=== PATIENT | female | born 1930 | race Caucasian/White ===

== ENCOUNTER 2017-02-19 12:48 | Emergency (ER) | payer OTHER ==
[2017-02-19 13:06] VITALS: TEMP 97.9
--- NOTE | 2017-02-19 15:25 | EDPHY ---
H & P Stated Complaint: mouth infection HPI/ROS: Chief complaint: Mouth infection History of present illness: This is an 86-year-old female brought to the emergency department by her daughter for evaluation of a mouth infection. Patient and daughter report patient has had dentures for the last few months. They have been poorly fitting. They have been causing irritation of the mouth. This morning they noted the left side of her cheek started to swell up. They are concerned she is developing an infection. They did apply ice and the swelling has decreased. She still has mild discomfort. No report of fevers or chills, no report of difficulty opening or closing the mouth, no report of difficulty talking, swallowing or breathing. - Personal History Tetanus Vaccine Date: < 10 years - Medical/Surgical History Hx Asthma: No Hx Chronic Respiratory Disease: Yes Hx Diabetes: Yes Hx Cardiac Disease: No Hx Renal Disease: No Hx Cirrhosis: No Hx Alcoholism: No Hx HIV/AIDS: No Hx Splenectomy or Spleen Trauma: No Other PMH: COPD, histoplasmosis, osteoporosis, breast cancer--RT breast lumpectomy 1989, diverticulitis, GERD, edema in b/l ankles, CHF, spinal surgery x3, chronic back pain (trevin TORRES), hysterectomy, bilateral cataract surgery, macular degeneration. - Social History Smoking Status: Former smoker - Physical Exam Exam: General: Alert, nontoxic Eyes: PERRLA ENT: Tympanic membranes, external auditory canals, external ears and surrounding soft tissue including over the mastoids are unremarkable. Nasopharynx is not injected. There is no rhinorrhea. Oropharynx is not injected. There is no edema. There is no exudate. There is no asymmetry. The uvula is midline. No elevation of the tongue. There is no hoarseness, no drooling, no trismus, no stridor. Mouth: There is irritation along the left buccal mucosa. Musculoskeletal: The face is nontender to palpation. Skin: No erythema or edema of the face. There is tenderness however over the left cheek region around the mandible. Neurologic: Alert and oriented. Strength and sensation intact and symmetrical. Constitutional: Initial Vital Signs Temperature (C) 36.6 C 02/19/17 13:01 Heart Rate 79 02/19/17 13:01 Respiratory Rate 18 02/19/17 13:01 Blood Pressure 147/86 H 02/19/17 13:01 O2 Sat (%) 91 L 05/15/17 13:01 O2 Delivery Mode Room Air O2 (L/minute) 2.5 Allergies/Adverse Reactions: Influenza TV-S 05-16 Vaccine [From Fluarix 2008-06 (PF)] Allergy (Verified 09/19 13:00) levofloxacin [From Levaquin] Allergy (Verified 09/19/16 13:00) lisinopril [Lisinopril] Allergy (Verified 09/19/16 13:00) flu shot Allergy (Uncoded 09/19/16 13:00) Home Medications: Medication Instructions Recorded Calcitonin,[place],Synthetic 1 spray EACHNARE DAILY 03/30/16 [Miacalcin] Cyanocobalamin [Vitamin B12 (*)] 1,000 mcg PO DAILY@03/30/16 DULoxetine [Cymbalta 60 MG (*)] 60 mg PO BID 03/30/16 Diclofenac Sodium [Voltaren Gel 1 polo TP QID 03/30/16 (*)] Ergocalciferol [Vitamin D2 (*)] 50,000 unit PO SA@08 03/30/16 Furosemide [Lasix 20 MG (*)] 20 mg PO Q2D 03/30/16 Magnesium Hydroxide [Milk of 30 ml PO BID PRN 03/30/16 Magnesia (*)] Metoprolol Succinate Xr [Toprol Xl 75 mg PO DAILY 03/30/16 50 mg (*)] Omeprazole [Prilosec 20 mg] 20 mg PO DAILY@0730 03/30/16 Pregabalin [Lyrica 75mg (*)] 75 mg PO BID 03/30/16 Sennosides/Docusate Sodium 2 each PO DAILY PRN 03/30/16 [Senokot-S] Teriparatide [Forteo] 0.8 ml SQ DAILY 03/30/16 Acetaminophen [Tylenol ES 500 mg 1,000 mg PO TID #0 tab 06/22/16 (*)] Ibuprofen [Motrin (*)] 400 mg PO Q6HRS PRN #0 tab 06/22/16 Patch Removal 1 ea TD DAILY21 PRN #0 patch 06/22/16 oxyCODONE IR [Oxycodone Ir (*)] 5 mg PO Q4 PRN #0 tab 06/22/16 Melatonin [Melatonin 3 MG (*)] 3 mg PO HS 09/01/16 Psyllium Husk (with Sugar) 1 each PO DAILY 09/01/16 [Metamucil Packet] QUEtiapine FUMARATE [Seroquel 25 25 mg PO HS 09/01/16 mg (*)] Acetaminophen [Tylenol ES 500 mg 1,000 mg PO Q8 #0 tab 09/02/16 (*)] Lidocaine 5% [Lidoderm 5% Patch 1 ea TD DAILY #30 patch 09/02/16 (*)] Atrovent 0.03% Nasal (*) 09/19/16 Amoxicillin 500 mg PO TID 7 Days 02/19/17 Medical Decision Making ED Course/Re-evaluation: Patient is seen under the supervision of my secondary supervising physician Dr. Jessica Nunez. Patient presents to the emergency department for evaluation of discomfort along her left cheek from dentures now with swelling to the face that has improved. She is nontoxic. Vital signs are stable. Physical exam reveals some irritation along the mucosal surface of the cheek and some tenderness to the cheek without obvious edema, induration or fluctuance or evidence of severe infection. I do believe it prudent to start her on antibiotics for potential infection. She is asked to follow up with an oral surgeon or dentist for continued evaluation and care. Strict return precautions are given. The family voiced understanding and agreement with plan. Differential Diagnosis: Included but not limited to odontogenic infection, salivary gland dysfunction, skin infection Departure - Departure Disposition: Home, Routine, Self-Care Clinical Impression: Infection of mouth Condition: Good Instructions: Dental Abscess (ED) Additional Instructions: Follow-up with a dentist or oral surgeon for recheck this week If symptoms worsen or new symptoms develop return to the emergency room for recheck Referrals: Elvin Guadarrama MD [Primary Care Provider] - As per Instructions Hugo Serrano MD [Medical Doctor] - As per Instructions Prescriptions: Amoxicillin 500 mg PO TID 7 Days
[2017-02-19 15:39] VITALS: BP 156/92; PULSE 74; RESP 16; O2SAT 97
== END 2017-02-19 15:38 | disposition home or self-care (01) ==
DX: B37.0 Candidal stomatitis (principal); E11.9 Type 2 diabetes mellitus without complications; J44.9 Chronic obstructive pulmonary disease, unspecified; I50.9 Heart failure, unspecified; Z85.3 Personal history of malignant neoplasm of breast; Z87.891 Personal history of nicotine dependence

== ENCOUNTER 2017-03-12 13:16 | Emergency (ER) | payer OTHER ==
[2017-03-12 13:46] VITALS: TEMP 96.8
--- NOTE | 2017-03-12 14:34 | EDPHY ---
HPI/HX/ROS/PE/MDM Narrative: CHIEF COMPLAINT: Oral sores HISTORY OF PRESENT ILLNESS: The patient is an 86-year-old female presenting with mouth sores. The patient was here about 1 month ago with the same complaint. At that time it was suspected the sores were due to her dentures. She received an antibiotic and was started on lidocaine and codeine mouthwash. This seemed to help the sores until this weekend. The sores have returned only to the left side. She has new dentures that she used 2-3 times last week. No reported fever or chills. The patient has an appointment with Dr. Ding, oral surgeon next week. She denies sore throat or difficulty swallowing. According to grounds caretaker, the patient has decreased appetite over the past week. No chest pain, shortness of breath, palpitations, vomiting, diarrhea, urinary complaints , headache, lightheadedness. REVIEW OF SYSTEMS: Aside from elements discussed in the HPI, a comprehensive 10-point review of systems was reviewed and is negative. PAST MEDICAL HISTORY: Right breast cancer, COPD, Histoplasmosis, Osteoporosis. SOCIAL HISTORY: Recently moved to memory care with . VITAL SIGNS: Reviewed by me GENERAL: Well-developed, well-nourished, resting comfortably in no respiratory distress. HEENT: Atraumatic. Eyes: No icterus, no injection. Mouth: Oral cavity- pale white plague across lateral side of tongue and the inner aspect of her lower lip , and across inner left cheek and corner of mouth. Cheek: Faint erythema to left cheek. Slightly warm to the touch. A few petechia to the left cheek. Neck : Tender adenopathy on the left. LUNGS: Clear to auscultation bilaterally, no wheezes, rhonchi or rales. CARDIAC: Regular rate and rhythm, no rubs, murmurs or gallops. ABDOMEN: Soft, nontender, nondistended, bowel sounds normal. BACK: No CVA tenderness. EXTREMITIES: No trauma. No edema. Range of motion is normal throughout. NEURO: Alert and oriented, grossly nonfocal. SKIN: Warm and dry, no rash. PSYCHIATRIC: Normal mentation, no agitation. Portions of this note were transcribed by a medical laboratory scientist. I personally performed a history, physical exam, medical decision making, and confirmed accuracy of information the transcribed note. ED Course: Patient presents with sores to her oral cavity. She was seen for this issue about 1 month ago and given antibiotics and an mouthwash with lidocaine and codeine. She has Oxycodone for this pain, but has issues swallowing the tablets. On exam patient has plaque pale white plague across lateral side of tongue, inner aspect of her lower lip, and across inner left cheek and corner of mouth. She has an appointment with an oral surgeon next week. Patient took 1 Oxycodone this morning. Plan for pain medication. Family member says patient has not been eating or drinking, plan for IV fluids. I will speak with Dr. Guadarrama to discuss plan. 3:30 p.m.: I spoke to Dr. Guadarrama, he will try to schedule an appointment with ENT. He is comfortable with patient waiting until to see oral surgeon. The patient is scheduled with [facility] tomorrow at 9:15 a.m. MDM: Diff dx considered included aphous ulcers, viral syndrome, leukoplakia, oral cancer, infection. - Data Points Laboratory Results: Laboratory Results 03/12/17 15:30 03/12/17 15:30 Medications Given: Discontinued Medications Sodium Chloride (Ns) 500 mls @ 0 mls/hr IV ONCE ONE PRN Reason: As Directed Stop: 03/12/17 15:07 Last Admin: 03/12/17 15:24 Dose: 500 mls Oxycodone HCl (Oxycodone Ir) 10 mg PO EDNOW ONE Stop: 03/12/17 15:07 Last Admin: 03/12/17 15:13 Dose: 10 mg General Time Seen by Provider: 03/12/17 14:27 Initial Vital Signs: Initial Vital Signs Temperature (C) 36 C 03/12/17 13:43 Heart Rate 86 03/12/17 13:43 Respiratory Rate 16 03/12/17 13:43 Blood Pressure 116/95 H 03/12/17 13:43 O2 Sat (%) 92 03/12/17 13:43 O2 Delivery Mode Nasal Cannula O2 (L/minute) 2 Allergies/Adverse Reactions: Influenza TV-S 05-16 Vaccine [From Fluarix 2008-06 (PF)] Allergy (Verified 09/19 13:00) levofloxacin [From Levaquin] Allergy (Verified 09/19/16 13:00) lisinopril [Lisinopril] Allergy (Verified 09/19/16 13:00) flu shot Allergy (Uncoded 09/19/16 13:00) Home Medications: Medication Instructions Recorded Calcitonin,[place],Synthetic 1 spray EACHNARE DAILY 03/30/16 [Miacalcin] Cyanocobalamin [Vitamin B12 (*)] 1,000 mcg PO DAILY@21 03/30/16 DULoxetine [Cymbalta 60 MG (*)] 60 mg PO BID 03/30/16 Diclofenac Sodium [Voltaren Gel 1 polo TP QID 03/30/16 (*)] Ergocalciferol [Vitamin D2 (*)] 50,000 unit PO SA@08 03/30/16 Furosemide [Lasix 20 MG (*)] 20 mg PO Q2D 03/30/16 Magnesium Hydroxide [Milk of 30 ml PO BID PRN 03/30/16 Magnesia (*)] Metoprolol Succinate Xr [Toprol Xl 75 mg PO DAILY 03/30/16 50 mg (*)] Omeprazole [Prilosec 20 mg] 20 mg PO DAILY@0730 03/30/16 Pregabalin [Lyrica 75mg (*)] 75 mg PO BID 03/30/16 Sennosides/Docusate Sodium 2 each PO DAILY PRN 03/30/16 [Senokot-S] Teriparatide [Forteo] 0.8 ml SQ DAILY 03/30/16 Acetaminophen [Tylenol ES 500 mg 1,000 mg PO TID #0 tab 06/22/16 (*)] Ibuprofen [Motrin (*)] 400 mg PO Q6HRS PRN #0 tab 06/22/16 Patch Removal 1 ea TD DAILY21 PRN #0 patch 06/22/16 oxyCODONE IR [Oxycodone Ir (*)] 5 mg PO Q4 PRN #0 tab 06/22/16 Melatonin [Melatonin 3 MG (*)] 3 mg PO HS 09/01/16 Psyllium Husk (with Sugar) 1 each PO DAILY 09/01/16 [Metamucil Packet] QUEtiapine FUMARATE [Seroquel 25 25 mg PO HS 09/01/16 mg (*)] Acetaminophen [Tylenol ES 500 mg 1,000 mg PO Q8 #0 tab 09/02/16 (*)] Lidocaine 5% [Lidoderm 5% Patch 1 ea TD DAILY #30 patch 09/02/16 (*)] Atrovent 0.03% Nasal (*) 09/19/16 Amoxicillin 500 mg PO TID 7 Days 02/19/17 Amoxicillin 500 mg PO TID 7 Days 03/12/17 Departure - Departure Disposition: Home, Routine, Self-Care Clinical Impression: Oral lesion Condition: Good Instructions: Mouth Lesions in Children (ED) Additional Instructions: You are scheduled to see an ear, nose, and throat specialist at [facility] in [facility] at 9:15 a.m. tomorrow. Please report to this appointment as scheduled. Okay to continue to use oxycodone for pain as well as Magic mouthwash. Begin taking the amoxicillin as directed. 500 mg by mouth 3 times a day for 7 days. Please followup with your Oral Surgeon if needed.. Referrals: Elvin Guadarrama MD [Primary Care Provider] - As per Instructions [facility], [facility] [Other] - As per Instructions Prescriptions: Amoxicillin 500 mg PO TID 7 Days Report Scribed for: Jolie Pinon Report Scribed by: Lenoarda Doshi Date of Report: 03/12/17 Time of Report: 14:34
[2017-03-12] MEDS ORDERED: oxyCODONE IR 5 MG TAB PO ONE (15:06)
[2017-03-12] MEDS ORDERED: NS 500 ML IV ONE (15:06)
[2017-03-12 15:47] LABS: % IMMATURE GRANULYOCYTES 0.3 % (0.0-1.1); ABSOLUTE IMMATURE GRANULOCYTES 0.03 10^3/uL (0.00-0.10); ADD DIFF? NO; ADD MORPH? NO; ADD SCAN? NO; ATYPICAL LYMPHOCYTE FLAG 0 (0-99); FRAGMENT RBC FLAG 0 (0-99); HEMATOCRIT 35.6 % (38.0-47.0); HEMOGLOBIN 11.4 g/dL (12.6-16.3); LEFT SHIFT FLG 0 (0-99); LIPEMIA HEMOLYSIS FLAG 80 (0-99); MEAN CELL HEMOGLOBIN 30.2 pg (27.9-34.1); MEAN CELL VOLUME 94.4 fL (81.5-99.8); MEAN PLATELET VOLUME 10.6 fL (8.7-11.7); PLATELET CLUMPS FLAG 0 (0-99); PLATELET COUNT 173 10^3/uL (150-400); RED BLOOD CELL COUNT 3.77 10^6/uL (4.18-5.33); RED CELL DISTRIBUTION WIDTH 14.4 % (11.5-15.2)
[2017-03-12 16:04] LABS: ANION GAP 10 mEq/L (8-16); CALCIUM 9.3 mg/dL (8.5-10.4); CARBON DIOXIDE 27 mEq/l (22-31); CHLORIDE 98 mEq/L (97-110); CREATININE 0.7 mg/dL (0.6-1.0); GLOMERULAR FILTRATION RATE > 60; GLUCOSE 80 mg/dL (70-100); SODIUM 135 mEq/L (134-144)
[2017-03-12 16:35] VITALS: BP 151/74; PULSE 78; RESP 18; O2SAT 95
== END 2017-03-12 16:35 | disposition home or self-care (01) ==
DX: K13.79 Other lesions of oral mucosa (principal); J44.9 Chronic obstructive pulmonary disease, unspecified; Z85.3 Personal history of malignant neoplasm of breast

== ENCOUNTER 2017-07-05 11:11 | Emergency (ER) | payer OTHER ==
--- NOTE | 2017-07-05 12:58 | EDPHY ---
H & P Smoking Status: Former smoker Time Seen by Provider: 07/05/17 12:38 HPI/ROS: CHIEF COMPLAINT: Ecchymosis dorsum left hand in wrist HISTORY OF PRESENT ILLNESS: 87-year-old female with no anticoagulant use in the ER via private vehicle complaining of ecchymotic discoloration the dorsum of her left hand and wrist. No pain. No trauma. No paresthesia. PHYSICAL EXAM (Prior to examination, patient consented to physical exam, hands were washed and my usual and customary physical exam procedures followed) 1) GENERAL: Well-developed, well-nourished, alert and oriented. Appears to be in no acute distress. 2) HEAD: Normocephalic 3) HEENT: sclera anicteric 4) LUNGS: Breathing comfortably. 5) SKIN: ecchymotic discoloration extending from the dorsal aspect of the wrist distally to the PIP joints. Non circumferential. Not consistent with cellulitis or infectious etiology 6) MUSCULOSKELETAL: left upper extremity is palpated I am unable to elicit any areas of discomfort, no underlying osseous discomfort, no no crepitus. Soft compartments. 7) NEUROLOGIC: Radial ulnar median nerve function intact distally, capillary refill less than 2 seconds in all digits distally. Brisk pulses. (Félix Zarate) Constitutional: Initial Vital Signs Temperature (C) 36.3 C 07/05/17 11:27 Heart Rate 72 07/05/17 11:27 Respiratory Rate 18 07/05/17 11:27 Blood Pressure 182/89 H 07/05/17 11:27 O2 Sat (%) 90 L 07/05/17 11:27 O2 Delivery Mode Room Air Allergies/Adverse Reactions: Influenza TV-S 05-16 Vaccine [From Fluarix 2007- (PF)] Allergy (Verified 07/05 11:21) levofloxacin [From Levaquin] Allergy (Verified 07/05/17 11:21) lisinopril [Lisinopril] Allergy (Verified 07/05/17 11:21) flu shot Allergy (Uncoded 09/19/16 13:00) Home Medications: Medication Instructions Recorded Calcitonin,[place],Synthetic 1 spray EACHNARE DAILY 03/30/16 [Miacalcin] Cyanocobalamin [Vitamin B12 (*)] 1,000 mcg PO DAILY@21 03/30/16 DULoxetine [Cymbalta 60 MG (*)] 60 mg PO BID 03/30/16 Diclofenac Sodium 1% [Voltaren Gel 1 polo TP QID 03/30/16 (*)] Ergocalciferol [Vitamin D2 (*)] 50,000 unit PO SA@08 03/30/16 Furosemide [Lasix 20 MG (*)] 20 mg PO Q2D 03/30/16 Magnesium Hydroxide [Milk of 30 ml PO BID PRN 03/30/16 Magnesia (*)] Metoprolol Succinate Xr [Toprol Xl 75 mg PO DAILY 03/30/16 50 mg (*)] Omeprazole [Prilosec 20 mg] 20 mg PO DAILY@0730 03/30/16 Pregabalin [Lyrica 75mg (*)] 75 mg PO BID 03/30/16 Sennosides/Docusate Sodium 2 each PO DAILY PRN 03/30/16 [Senokot-S] Ibuprofen [Motrin (*)] 400 mg PO Q6HRS PRN #0 tab 06/22/16 Patch Removal 1 ea TD DAILY21 PRN #0 patch 06/22/16 oxyCODONE IR [Oxycodone Ir (*)] 5 mg PO Q4 PRN #0 tab 06/22/16 Melatonin [Melatonin 3 MG (*)] 3 mg PO HS 09/01/16 Psyllium Husk (with Sugar) 1 each PO DAILY 09/01/16 [Metamucil Packet] QUEtiapine FUMARATE [Seroquel 25 25 mg PO HS 09/01/16 mg (*)] Lidocaine 5% [Lidoderm 5% Patch 1 ea TD DAILY #30 patch 09/02/16 (*)] Atrovent 0.03% Nasal (*) 09/19/16 Creon 12 (*) 07/05/17 Diclofenac Sodium 07/05/17 MDM/Departure - [facility] ED Course/Re-evaluation: 1:08 p.m.: Patient was also seen and examined by Dr. Anthony Arriaza in the ER. Doubt arterial or vascular occlusive disorder. Doubt cellulitis. Doubt necrotizing fasciitis. We recommended elevation. We do not think that diagnostic studies are currently indicated from the emergency department. ( Félix Zarate) I also saw the patient in the emergency department. I reviewed the history of no trauma. Physical exam shows stable vital signs. Confluent ecchymosis from the base of the fingers across the dorsum of the hand just proximal to the wrist crease. No focal tenderness. Pulses are good. No weakness. Good range of motion. Patient and I discussed treatment plan including criteria for return importance of follow-up further evaluation. She expresses understanding and agreement (Anthony Arriaza) - Depart Disposition: Home, Routine, Self-Care Clinical Impression: Traumatic ecchymosis of left hand Qualifiers: Encounter type: initial encounter Qualified Code(s): S60.222A - Contusion of left hand, initial encounter Condition: Good Instructions: Contusion in Adults (ED) Additional Instructions: keep the area elevated, return to the ER if you develop worsening discoloration , she developed numbness, if you develop pain or any other symptoms that concern Referrals: Elvin Guadarrama MD [Primary Care Provider] - 1-2 days without fail
[2017-07-05 13:44] VITALS: BP 135/82; PULSE 76; RESP 16; TEMP 98.1; O2SAT 97
== END 2017-07-05 13:43 | disposition home or self-care (01) ==
DX: S60.222A Contusion of left hand, initial encounter (principal); Z87.891 Personal history of nicotine dependence; X58.XXXA Exposure to other specified factors, initial encounter